=== PATIENT | male | born 1955 | race Caucasian/White ===

== ENCOUNTER 2021-10-07 17:07 | Inpatient (IN) ==
[2021-10-07] MEDS ORDERED: *HR* FentaNYL (PF) 100 MCG/2 ML VIAL ONE (19:04)
[2021-10-07] MEDS ORDERED: *HR* Midazolam HCl 2 MG/2 ML VIAL ONE (19:04)
[2021-10-07] MEDS ORDERED: *HR* Propofol 200 MG/20 ML VIAL IVP ONE (19:05)
[2021-10-07] MEDS ORDERED: *HR* Succinylcholine 200 MG/10 ML VIAL IVP ONE (19:07)
[2021-10-07] MEDS ORDERED: *HR* Rocuronium Bromide 50 MG/5 ML VIAL ONE (19:07)
[2021-10-07] MEDS ORDERED: Ondansetron 4 MG/2 ML VIAL ONE (19:07)
[2021-10-07] MEDS ORDERED: Lidocaine HCL 4 ML Topical Solution (Laryng-O-Jet Kit Sterile Pak) TP ONE (19:07)
[2021-10-07] MEDS ORDERED: Lidocaine -MPF 2% 5 ML VIAL ONE (19:07)
[2021-10-07] MEDS ORDERED: Famotidine 20 MG/2 ML VIAL ONE (20:52)
[2021-10-07] MEDS ORDERED: Acetaminophen IV 1,000 MG/100 ML BAG IVPB ONE (20:52)
[2021-10-07] MEDS ORDERED: Ondansetron 4 MG/2 ML VIAL IVP PRN ×2 (20:59→23:43)
[2021-10-07] MEDS ORDERED: 0.9 % Sodium Chloride 1,000 ML IVC SCH (21:00)
[2021-10-07] MEDS ORDERED: *HR* HYDROMORPHONE 2 MG/ML VIAL ONE (21:42)
[2021-10-07] MEDS ORDERED: *HR* Labetalol 20 MG/4 ML SYRINGE IVP PRN (21:53)
[2021-10-07] MEDS ORDERED: *HR* HYDROmorphone 2 MG TABLET PO PRN (21:53)
[2021-10-07] MEDS ORDERED: *HR* OxyCODONE Immed Rel 5 MG TABLET PO PRN (21:53)
[2021-10-07] MEDS ORDERED: *HR* HYDROmorphone (PF) 1 MG/ML SYRINGE IVP PRN (21:53)
[2021-10-08] MEDS ORDERED: Acetaminophen IV 1,000 MG/100 ML BAG IVPB SCH
[2021-10-08] MEDS ORDERED: Piperacillin/Tazobactam 3.375 GM in 0.9 % Sodium Chloride Mini Bag 100 ML IVPB SCH
[2021-10-08] MEDS ORDERED: Ketorolac 30 MG/ML VIAL IVP SCH
[2021-10-08] MEDS: Acetaminophen IV 1,000 MG/100 ML BAG IVPB SCH ×3 (00:44→14:19)
[2021-10-08] MEDS: Ketorolac 30 MG/ML VIAL IVP SCH ×3 (00:44→14:20)
[2021-10-08] MEDS: 0.9 % Sodium Chloride 1,000 ML IVC SCH ×3 (00:44→19:35)
[2021-10-08] MEDS: Piperacillin/Tazobactam 3.375 GM in 0.9 % Sodium Chloride Mini Bag 100 ML IVPB SCH ×2 (00:45→09:18)
[2021-10-08 05:32] LABS: Basophils % 0.1 %; Hematocrit 30.5 % (37.5-50.1); Immature Granulocytes % 0.7 % (0-4); Lymphocytes # 0.4 K/mcL (0.6-4.6); Lymphocytes % 4.2 %; Mean Corpuscular HGB Conc 32.8 g/dL (31.6-35.5); Mean Corpuscular Hemoglobin 28.7 pg (28.0-33.3); Mean Corpuscular Volume 87.6 fL (83.0-100.0); Mean Platelet Volume 10.9 fL (9.4-12.4); Monocytes # 0.5 K/mcL (0.0-1.3); Monocytes % 4.4 %; Neutrophils # 9.4 K/mcL (1.6-8.9); Platelet Count 173 K/mcL (140-400); Red Blood Count 3.48 M/mcL (4.19-5.50); Red Cell Distribution Width 14.1 % (11.5-14.5); Segmented Neutrophils % 90.6 %; White Blood Count 10.4 K/mcL (4.3-11.1)
[2021-10-08 05:39] LABS: BUN/Creatinine Ratio 18 (6-26); Blood Urea Nitrogen 25 mg/dL (8-23); Carbon Dioxide 23 mEq/L (23-29); Chloride 99 mEq/L (98-107); Glucose 131 mg/dL (70-105); Osmolality,Calculated 274 (280-300); Potassium 4.4 mEq/L (3.5-5.1); Sodium 129 mEq/L (136-145); eGFR For African Americans > 60 (> 60); eGFR For Non-African Americans 51 (> 60)
[2021-10-08] MEDS ORDERED: Pantoprazole 40 MG VIAL IVP SCH (09:00)
[2021-10-08] MEDS: Fluconazole 400 MG/200 ML 400 MG/200 ML BAG IVPB SCH (09:19)
[2021-10-08] MEDS: Pantoprazole 40 MG VIAL IVP SCH (09:20)
[2021-10-08] MEDS: *HR* Heparin 5,000 UNIT/ML VIAL SQ SCH (09:43)
[2021-10-09] MEDS: Piperacillin/Tazobactam 3.375 GM in 0.9 % Sodium Chloride Mini Bag 100 ML IVPB SCH ×4 (00:08→16:30)
[2021-10-09] MEDS: Ketorolac 30 MG/ML VIAL IVP SCH ×6 (00:10→18:41)
[2021-10-09] MEDS: *HR* Heparin 5,000 UNIT/ML VIAL SQ SCH ×3 (06:06→18:42)
[2021-10-09] MEDS: 0.9 % Sodium Chloride 1,000 ML IVC SCH ×3 (06:08→16:30)
[2021-10-09] MEDS: Acetaminophen IV 1,000 MG/100 ML BAG IVPB SCH ×4 (07:39→18:43)
[2021-10-09 10:38] LABS: Basophils % 0.4 %; Eosinophils # 0.1 K/mcL (0.0-0.6); Eosinophils % 0.9 %; Hematocrit 34.7 % (37.5-50.1); Hemoglobin 11.3 g/dL (12.9-16.9); Lymphocytes # 0.7 K/mcL (0.6-4.6); Lymphocytes % 8.8 %; Mean Corpuscular HGB Conc 32.6 g/dL (31.6-35.5); Mean Corpuscular Hemoglobin 29.1 pg (28.0-33.3); Mean Corpuscular Volume 89.4 fL (83.0-100.0); Mean Platelet Volume 10.7 fL (9.4-12.4); Monocytes # 0.5 K/mcL (0.0-1.3); Monocytes % 5.5 %; Neutrophils # 6.8 K/mcL (1.6-8.9); Platelet Count 203 K/mcL (140-400); Red Blood Count 3.88 M/mcL (4.19-5.50); Red Cell Distribution Width 14.5 % (11.5-14.5); Segmented Neutrophils % 83.4 %; White Blood Count 8.2 K/mcL (4.3-11.1)
[2021-10-09 10:56] LABS: BUN/Creatinine Ratio 23 (6-26); Blood Urea Nitrogen 31 mg/dL (8-23); Calcium 8.3 mg/dL (8.6-10.3); Carbon Dioxide 23 mEq/L (23-29); Chloride 103 mEq/L (98-107); Glucose 91 mg/dL (70-105); Osmolality,Calculated 284 (280-300); Potassium 3.9 mEq/L (3.5-5.1); Sodium 134 mEq/L (136-145); eGFR For African Americans > 60 (> 60); eGFR For Non-African Americans 54 (> 60)
[2021-10-09] MEDS: Fluconazole 400 MG/200 ML 400 MG/200 ML BAG IVPB SCH (11:06)
[2021-10-09] MEDS: Pantoprazole 40 MG VIAL IVP SCH (11:08)
[2021-10-09 17:20] LABS: Sodium, Urine 40.4 mEq/L
[2021-10-09 17:36] LABS: Bacteria,Urine Few per hpf (None-Few); Bilirubin,Urine Negative (Negative); Blood,Urine Negative (Negative); Clarity,Urine Turbid (Clear); Color,Urine Yellow (Yellow); Glucose,Urine (UA) Normal (Normal); Ketones,Urine Trace mg/dL (Negative); Leukocyte Esterase,Urine Negative (Negative); Mucus,Urine Few per lpf (None-Few); Nitrite,Urine Negative (Negative); Protein,Urine 100 mg/dL (Neg-Trace); RBC,Urine 0-3 per hpf (0-3); Specific Gravity,Urine > 1.030 (1.010-1.025); Urobilinogen,Urine Normal (Normal)
[2021-10-10] MEDS: Piperacillin/Tazobactam 3.375 GM in 0.9 % Sodium Chloride Mini Bag 100 ML IVPB SCH ×3 (00:21→15:00)
[2021-10-10] MEDS: Acetaminophen IV 1,000 MG/100 ML BAG IVPB SCH ×4 (00:21→17:40)
[2021-10-10] MEDS: Ketorolac 30 MG/ML VIAL IVP SCH ×4 (00:21→17:39)
[2021-10-10] MEDS: 0.9 % Sodium Chloride 1,000 ML IVC SCH ×3 (00:22→17:44)
[2021-10-10] MEDS: *HR* Heparin 5,000 UNIT/ML VIAL SQ SCH ×2 (05:35→17:40)
[2021-10-10 07:38] LABS: Basophils # 0.1 K/mcL (0.0-0.2); Basophils % 0.8 %; Eosinophils # 0.2 K/mcL (0.0-0.6); Eosinophils % 2.5 %; Hematocrit 30.2 % (37.5-50.1); Immature Granulocytes % 1.3 % (0-4); Lymphocytes # 0.5 K/mcL (0.6-4.6); Lymphocytes % 7.9 %; Mean Corpuscular HGB Conc 32.1 g/dL (31.6-35.5); Mean Corpuscular Volume 90.4 fL (83.0-100.0); Mean Platelet Volume 10.5 fL (9.4-12.4); Monocytes # 0.4 K/mcL (0.0-1.3); Monocytes % 6.3 %; Neutrophils # 5.1 K/mcL (1.6-8.9); Platelet Count 218 K/mcL (140-400); Red Blood Count 3.34 M/mcL (4.19-5.50); Red Cell Distribution Width 14.3 % (11.5-14.5); Segmented Neutrophils % 81.2 %; White Blood Count 6.3 K/mcL (4.3-11.1)
[2021-10-10 07:47] LABS: Estimated Average Glucose 114 mg/dl; Hemoglobin A1C 5.6 %
[2021-10-10 07:49] LABS: Hemoglobin 9.7 g/dL (12.9-16.9)
[2021-10-10 07:58] LABS: BUN/Creatinine Ratio 24 (6-26); Blood Urea Nitrogen 27 mg/dL (8-23); Calcium 7.6 mg/dL (8.6-10.3); Carbon Dioxide 22 mEq/L (23-29); Chloride 107 mEq/L (98-107); Chol/HDL Ratio 16.7 (0-4.9); Cholesterol 117 mg/dL (< 200); Glucose 87 mg/dL (70-105); HDL Cholesterol 7 mg/dL (40-59); Osmolality,Calculated 286 (280-300); Potassium 3.9 mEq/L (3.5-5.1); Sodium 136 mEq/L (136-145); Triglycerides 409 mg/dL (< 150); eGFR For African Americans > 60 (> 60); eGFR For Non-African Americans > 60 (> 60)
[2021-10-10] MEDS: Fluconazole 400 MG/200 ML 400 MG/200 ML BAG IVPB SCH (08:01)
[2021-10-10] MEDS: Pantoprazole 40 MG VIAL IVP SCH (08:02)
[2021-10-11] MEDS: Acetaminophen IV 1,000 MG/100 ML BAG IVPB SCH ×2 (00:03→05:32)
[2021-10-11] MEDS: Ketorolac 30 MG/ML VIAL IVP SCH ×2 (00:04→05:33)
[2021-10-11] MEDS: Piperacillin/Tazobactam 3.375 GM in 0.9 % Sodium Chloride Mini Bag 100 ML IVPB SCH ×2 (00:05→07:39)
[2021-10-11 02:51] LABS: Hematocrit 27.2 % (37.5-50.1); Hemoglobin 8.8 g/dL (12.9-16.9); Mean Corpuscular HGB Conc 32.4 g/dL (31.6-35.5); Mean Corpuscular Hemoglobin 29.5 pg (28.0-33.3); Mean Corpuscular Volume 91.3 fL (83.0-100.0); Mean Platelet Volume 10.5 fL (9.4-12.4); Platelet Count 215 K/mcL (140-400); Red Blood Count 2.98 M/mcL (4.19-5.50); Red Cell Distribution Width 14.5 % (11.5-14.5); White Blood Count 5.6 K/mcL (4.3-11.1)
[2021-10-11 03:04] LABS: BUN/Creatinine Ratio 20 (6-26); Blood Urea Nitrogen 22 mg/dL (8-23); Calcium 7.5 mg/dL (8.6-10.3); Carbon Dioxide 22 mEq/L (23-29); Chloride 110 mEq/L (98-107); Glucose 100 mg/dL (70-105); Osmolality,Calculated 289 (280-300); Potassium 3.7 mEq/L (3.5-5.1); Sodium 138 mEq/L (136-145); eGFR For African Americans > 60 (> 60); eGFR For Non-African Americans > 60 (> 60)
[2021-10-11] MEDS: 0.9 % Sodium Chloride 1,000 ML IVC SCH (05:32)
[2021-10-11] MEDS: *HR* Heparin 5,000 UNIT/ML VIAL SQ SCH (05:33)
[2021-10-11] MEDS: Fluconazole 400 MG/200 ML 400 MG/200 ML BAG IVPB SCH (07:40)
[2021-10-11] MEDS: Pantoprazole 40 MG VIAL IVP SCH (07:40)
[2021-10-11] MEDS ORDERED: Ibuprofen 800 MG TABLET PO ONE (08:57)
[2021-10-11] MEDS ORDERED: *HR* OxyCODONE Immed Rel 5 MG TABLET PO PRN (08:57)
[2021-10-11] MEDS ORDERED: Acetaminophen 325 MG TABLET PO PRN (08:57)
[2021-10-11] MEDS ORDERED: polyethylene glycoL 3350 17 GM POWD.PACK PO SCH (09:00)
[2021-10-11 10:44] VITALS: BP 113/71; PULSE 45; TEMP 97.7; O2SAT 95
== END 2021-10-11 15:05 | disposition home or self-care (01) | DRG 338 ==
LOC: 3ANU → SUATTDRO 18:49
PROVIDERS: ADMIT Surgery; ATTEND Internal Medicine